=== PATIENT | male | born 1955 | race African-American/Black ===

== ENCOUNTER 2016-09-11 00:07 | Emergency (ER) | payer OTHER ==
--- NOTE | ~2016-09-11 | EKG ---
PATIENT: OMAR PENDLETON UNIT #: [id number] Ventricular Rate: 44 BPM Atrial Rate: 44 BPM P-R Interval: 268 ms QRS Duration: 80 ms Q-T Interval: 454 ms QTC Calculation(Bezet): 388 ms P Hubbell: 39 degrees Calculated R Hubbell: 30 degrees Calculated T Hubbell: 8 degrees Diagnosis Line: Marked sinus bradycardia with 1st degree A-V block Diagnosis Line: Nonspecific T wave abnormality Diagnosis Line: Abnormal ECG Diagnosis Line: No previous ECGs available Diagnosis Line: Confirmed by HAYDEN ARTHUR MD ([id number]) on Diagnosis Line: 09/11/2016 10:38:53 PM INTERPRETING MD: LUDY
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
[2016-09-11 03:15] LABS: BASOPHIL% 0.5 % (0-2.5); EOSINOPHIL# 0.1 X10e3 (0-0.7); EOSINOPHIL% 2.4 % (0.0-7.0); HEMATOCRIT 42.1 % (38.0-50.0); HEMOGLOBIN 14.1 gm/dL (13.0-16.0); LYMPHOCYTE# 2.9 X10e3 (1.0-3.5); LYMPHOCYTE% 58.7 % (17.0-45.0); MEAN CELL VOLUME 91.3 FL (83-96); MEAN CORPUSCULAR HEMOGLOBIN 30.7 PG (28-34); MEAN CORPUSCULAR HGB CONC 33.6 g/dL (30-36); MEAN PLATELET VOLUME 6.1 FL (6.5-11.5); MONOCYTE# 0.4 X10e3 (0-1.0); MONOCYTE% 8.2 % (3.0-12.0); NEUTROPHIL# 1.5 X10e3 (1.5-7.1); NEUTROPHIL% 30.2 % (40-75); PLATELET COUNT 212 X10e3 (140-420); RED BLOOD COUNT 4.61 X10e (3.90-5.60); RED CELL DISTRIBUTION WIDTH 12.5 % (11.0-15.5)
[2016-09-11 03:23] LABS: DIFF IND YES
[2016-09-11 03:30] LABS: CALCIUM SERUM 9.3 mg/dL (8.4-10.2); GLOM FILT RATE Estimated 93.1 mL/min (>60); POTASSIUM 3.6 mmol/L (3.5-5.1)
[2016-09-11 03:39] LABS: PLATELET ESTIMATE NORMAL (NORMAL)
[2016-09-11 03:40] LABS: ROULEAUX SLIGHT
[2016-09-11 04:33] LABS: POC - CKMB 3.1 ng/mL (0.0-7.9); POC - TROPONIN <0.05 ng/mL (<=0.05)
== END 2016-09-11 05:04 | disposition home or self-care (01) ==
LOC: CED 00:07
PROVIDERS: Nurse Practitioner
DX: S16.1XXA Strain of muscle, fascia and tendon at neck level, initial encounter (principal); S39.012A Strain of muscle, fascia and tendon of lower back, initial encounter; S29.012A Strain of muscle and tendon of back wall of thorax, initial encounter; E11.9 Type 2 diabetes mellitus without complications; I10 Essential (primary) hypertension; Z79.84 Long term (current) use of oral hypoglycemic drugs; Z79.899 Other long term (current) drug therapy; V43.52XA Car driver injured in collision with other type car in traffic accident, initial encounter; Y92.410 Unspecified street and highway as the place of occurrence of the external cause
CPT/HCPCS: 36415; 71010; 72040; 72072; 72100; 80048; 82553; 82947; 84484; 85025; 93005; 99284